=== PATIENT | male | born 1965 | race African-American/Black ===

== ENCOUNTER 2017-04-30 15:59 | Emergency (ER) | payer BC ==
[~2017-04-30] VITALS: Ht 175.3 cm; Wt 118.2 kg
[2017-04-30 16:14] VITALS: Ht 175.3 cm; Wt 118.2 kg
[2017-04-30] MEDS ORDERED: SOD CHLORIDE 0.9% 1,000 ML IV STA (16:36)
[2017-04-30] MEDS ORDERED: ASPIRIN 325 MG TAB PO STA (16:36)
[2017-04-30 17:01] LABS: ADD SCAN DIFF NO
[2017-04-30 17:02] LABS: BASOPHILS % 0.4 % (0.0-2.0); EOSINOPHILS # 0.4 10^3/ul (0.0-0.5); EOSINOPHILS % 5.3 % (0.0-7.0); HEMATOCRIT 37.3 % (42.0-52.0); HEMOGLOBIN 12.2 g/dl (14.0-18.0); LYMPHOCYTES # 1.7 10^3/ul (0.8-2.9); LYMPHOCYTES % 20.8 % (15.0-51.0); MEAN CORPUSCULAR HEMOGLOBIN 30.7 pg (29.0-33.0); MEAN CORPUSCULAR HGB CONC 32.7 g/dl (32.0-37.0); MEAN CORPUSCULAR VOLUME 93.7 fl (82.0-101.0); MEAN PLATELET VOLUME 9.2 fl (7.4-10.4); MONOCYTES % 12.2 % (0.0-11.0); NEUTROPHIL # 4.9 10^3/ul (1.6-7.5); NEUTROPHILS % 60.9 % (39.0-77.0); PLATELET COUNT 441 10^3/UL (140-415); RED BLOOD COUNT 3.98 10^6/ul (4.70-6.10); RED CELL DISTRIBUTION WIDTH 12.6 % (11.5-14.5); WHITE BLOOD COUNT 8.1 10^3/ul (4.8-10.8)
[2017-04-30 17:06] LABS: INR 1.05; PROTIME 13.7 Sec (12.2-14.2); PT RATIO 1.1
[2017-04-30 17:07] LABS: PARTIAL THROMBOPLASTIN TIME 35.5 Sec (25.0-35.0)
[2017-04-30 17:09] LABS: ALANINE AMINOTRANSFERASE 52 IU/L (13-69); ALBUMIN 4.2 g/dl (3.3-4.9); ALBUMIN/GLOBULIN RATIO 1.44; ALKALINE PHOSPHATASE 124 IU/L (42-121); ANION GAP 15 (8-16); ASPARTATE AMINO TRANSFERASE 38 IU/L (15-46); BLOOD UREA NITROGEN 8 mg/dl (7-20); CALCIUM 9.6 mg/dl (8.4-10.2); CARBON DIOXIDE 27 mmol/L (21-31); CHLORIDE 105 mmol/L (97-110); CREATININE 0.87 mg/dl (0.61-1.24); GLUCOSE 110 mg/dl (70-220); POTASSIUM 4.2 mmol/L (3.5-5.1); SODIUM 143 mmol/L (135-144); TOTAL PROTEIN 7.1 g/dl (6.1-8.1)
[2017-04-30] MEDS ORDERED: ALPR0.5T6 PO (17:15)
[2017-04-30] MEDS ORDERED: ONDANSETRON 4 MG INJ IV STA ×2 (17:19→21:20)
[2017-04-30] MEDS ORDERED: HYDROmorphONE 1 MG/ML SYG IV STA ×2 (17:19→21:20)
[2017-04-30] MEDS ORDERED: NEOM28.33 TP (17:22)
[2017-04-30 17:26] LABS: TROPONIN-I < 0.012 ng/ml (0.00-0.12)
--- NOTE | 2017-04-30 17:37 | RADRPT ---
PROCEDURE: CT Brain without contrast. CLINICAL INDICATION: Stroke, asymmetric weakness TECHNIQUE: Routine CT scan of the brain was performed on a high resolution multi detector scanner without intravenous contrast. One or more of the following dose reduction techniques were used: Auto mated exposure control; Adjustment of the mA and/or kV according to patient size; Use of iterative r econstruction technique. CTDI = 43 mGy. DLP = 720 mGy-cm. COMPARISON: No prior relevant examinations are available for comparison. FINDINGS: Hemorrhage: No evidence of intracranial hemorrhage. Acute ischemic changes: No evidence of acute ischemic changes. Mass effect/Midline shift: None. Parenchymal volume: Within normal limits for age. Ventricular system: Concordant with parenchymal volume. Chronic changes: Parenchymal attenuation is within normal limits. Extracranial soft tissues: Unremarkable. Calvarium: No fractures. Paranasal sinuses: Visualized paranasal sinuses are clear. Mastoid air cells: Visualized mastoid air cells are clear. IMPRESSION: No acute intracranial abnormalities. Normal appearance of the brain parenchyma. MRI of the brain may be useful for further evaluation. Results were discussed with Dr. Salinas by telephone at 1733 hours on 04/30/[address] Mason teixeira RPTAT: AADD .Mason Brown MD, Date Time Electronically viewed and signed by .Mason Brown MD, MD on 04/30/2017 17:37 .B/
--- NOTE | 2017-04-30 17:51 | RADRPT ---
PROCEDURE: XR Chest. CLINICAL INDICATION: Chest pain. Possible stroke TECHNIQUE: Portable AP semi erect view of the chest was obtained. COMPARISON: None. FINDINGS: The cardiomediastinal silhouette is within normal limits. The lungs are clear. There is no evidenc e for pleural effusion, pneumothorax or pulmonary vascular congestion. The osseous structures are i ntact with no evidence for acute abnormality. RPTAT:HJJR IMPRESSION: No evidence for acute intrathoracic pathology. Physician Nael Date Time Electronically viewed and signed by Brendan Barrera Physician on 04/30/2017 17:51 JR/
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
[2017-04-30 22:04] VITALS: BP 112/67; PULSE 81; RESP 18; TEMP 98.1
== END 2017-04-30 22:15 | disposition short-term general hospital (02) ==
LOC: E/R 15:59
DX: I63.9 Cerebral infarction, unspecified (principal); R40.2252 Coma scale, best verbal response, oriented, at arrival to emergency department; I50.9 Heart failure, unspecified; F17.210 Nicotine dependence, cigarettes, uncomplicated; R93.0 Abnormal findings on diagnostic imaging of skull and head, not elsewhere classified; R40.2142 Coma scale, eyes open, spontaneous, at arrival to emergency department; R40.2362 Coma scale, best motor response, obeys commands, at arrival to emergency department
CPT/HCPCS: 36415; 70450; 71010; 80053; 84484; 85025; 85610; 85730; 93005; 96374; 96375; 96376; J1170; J2405; J7030; Z7502; Z7610

== ENCOUNTER 2018-06-14 09:58 | Inpatient (IN) | END 2018-08-16 15:57 | DRG 464 ==